=== PATIENT | female | born 1985 | race African-American/Black ===

== ENCOUNTER 2022-01-23 22:08 | Emergency (ER) | payer SELFPAY | END 2022-01-23 23:21 | disposition home or self-care (01) | LOC: CSHERS 22:08 | DX: J01.90 Acute sinusitis, unspecified (principal); E78.5 Hyperlipidemia, unspecified; I10 Essential (primary) hypertension; E11.9 Type 2 diabetes mellitus without complications; F17.290 Nicotine dependence, other tobacco product, uncomplicated; Z79.899 Other long term (current) drug therapy | CPT/HCPCS: 99283 ==

== ENCOUNTER 2022-12-09 17:34 | Emergency (ER) | payer SELFPAY ==
[2022-12-09] MEDS ORDERED: Acetaminophen 500 MG TAB ONE (19:07)
[2022-12-09] MEDS ORDERED: Ketorolac Tromethamine 30 MG/ML VIAL ONE (19:09)
[2022-12-09 19:31] LABS: SARS-CoV-2 NAA Rapid Test Not Detected (NotDetected)
== END 2022-12-09 20:24 | disposition home or self-care (01) ==
LOC: CSHERS 17:34
DX: B34.9 Viral infection, unspecified (principal); Z20.822 Contact with and (suspected) exposure to COVID-19; E78.5 Hyperlipidemia, unspecified; I10 Essential (primary) hypertension; Z79.899 Other long term (current) drug therapy; E11.9 Type 2 diabetes mellitus without complications; Z87.891 Personal history of nicotine dependence; Z79.84 Long term (current) use of oral hypoglycemic drugs
CPT/HCPCS: 96372; 99284; J1885

== ENCOUNTER 2023-01-23 18:38 | Emergency (ER) | payer OTHER, SELFPAY ==
[~2023-01-23 18:38] MED LIST: Iopamidol 370 76% 100 ML VIAL ONE
[2023-01-23 19:07] LABS: #Basophils 0.1 10x3/uL (0.0-0.2); #Eosinphils 0.3 10x3/uL (0.0-0.5); #Monocytes 0.6 10x3/uL (0.0-1.1); #Neutrophils 4.4 10x3/uL (1.5-8.4); %Basophils 0.6 % (0.0-2.0); %Eosinophils 2.5 % (0.0-6.0); %Lymphocytes 46.3 % (18.0-47.0); %Monocytes 6.3 % (0.0-10.0); Hemoglobin 12.5 g/dL (12.0-15.5); Mean Corpuscular HGB CONC 33.2 g/dL (32.0-36.0); Mean Corpuscular Hemoglobin 29.5 pg (27.0-33.0); Mean Corpuscular Volume 88.9 fl (81.6-98.3); Mean Platelet Volume 10.6 fl (7.4-10.4); Platelet Count 326 10x3/uL (150-450); RBC Distribution Width 13.2 % (11.5-14.5); Red Blood Cell (RBC) Count 4.24 10x6/uL (3.90-5.03); White Blood Cell (WBC) Count 10.1 10x3/uL (3.5-10.5)
[2023-01-23 19:19] LABS: PTT 26.3 sec (22.0-33.0); Prothrombin Time 10.5 sec (9.5-12.1)
[2023-01-23 19:22] LABS: ALT (SGPT) 15 U/L (8-55); AST (SGOT) 14 U/L (5-34); Albumin 4.2 g/dL (3.5-5.0); Alkaline Phosphatase 83 U/L (40-110); Anion Gap 16 mmol/L (10-20); BUN (Urea Nitrogen) 15 mg/dL (7.0-18.7); Bilirubin, Total 0.2 mg/dL (0.2-1.2); Calc. Creatinine Clearance 0 mL/min (70-130); Calcium 9.6 mg/dL (7.8-10.44); Carbon Dioxide 24 mmol/L (22-29); Chloride 102 mmol/L (98-107); Estimated GFR 89; Globulin 3.8 g/dL (2.4-3.5); Glucose 331 mg/dL (70-105); Potassium 3.7 mmol/L (3.5-5.1); Sodium 138 mmol/L (136-145)
[2023-01-23] MEDS ORDERED: Ondansetron PF 4 MG/2 ML Vial ONE (20:02)
[2023-01-23] MEDS ORDERED: Morphine 4 MG/ML VIAL ONE ×2 (20:02→23:06)
== END 2023-01-23 23:13 | disposition short-term general hospital (02) ==
LOC: MERGE 18:38 → CSHERS 18:38
DX: I77.71 Dissection of carotid artery (principal); I10 Essential (primary) hypertension; E11.9 Type 2 diabetes mellitus without complications
CPT/HCPCS: 0042T; 36416; 70450; 80053; 82550; 84484; 85025; 85610; 85730; 93005; 96374; 96375; 96376; J2270; J2405; Q9967

== ENCOUNTER 2023-06-17 23:57 | Emergency (ER) | payer BC, SELFPAY ==
[2023-06-18] MEDS ORDERED: diphenhydrAMINE 50 MG/ML VIAL ONE (01:17)
[2023-06-18] MEDS ORDERED: Ketorolac Tromethamine 30 MG/ML VIAL ONE (01:17)
[2023-06-18] MEDS ORDERED: Prochlorperazine 10 MG/2 ML VIAL ONE (01:17)
[2023-06-18 01:38] LABS: #Basophils 0.1 10x3/uL (0.0-0.2); #Eosinphils 0.3 10x3/uL (0.0-0.5); #Monocytes 0.7 10x3/uL (0.0-1.1); #Neutrophils 4.8 10x3/uL (1.5-8.4); %Basophils 0.6 % (0.0-2.0); %Eosinophils 2.5 % (0.0-6.0); %Lymphocytes 41.9 % (18.0-47.0); %Monocytes 6.5 % (0.0-10.0); Hematocrit 38.2 % (34.9-44.5); Hemoglobin 12.7 g/dL (12.0-15.5); Mean Corpuscular HGB CONC 33.2 g/dL (32.0-36.0); Mean Corpuscular Hemoglobin 29.4 pg (27.0-33.0); Mean Corpuscular Volume 88.4 fl (81.6-98.3); Mean Platelet Volume 10.8 fl (7.4-10.4); Platelet Count 289 10x3/uL (150-450); RBC Distribution Width 13.8 % (11.5-14.5); Red Blood Cell (RBC) Count 4.32 10x6/uL (3.90-5.03); White Blood Cell (WBC) Count 9.9 10x3/uL (3.5-10.5)
[2023-06-18 01:45] LABS: ALT (SGPT) 21 U/L (8-55); AST (SGOT) 15 U/L (5-34); Albumin 4.1 g/dL (3.5-5.0); Alkaline Phosphatase 98 U/L (40-110); Anion Gap 14 mmol/L (10-20); BUN (Urea Nitrogen) 13 mg/dL (7.0-18.7); Bilirubin, Total 0.2 mg/dL (0.2-1.2); Calc. Creatinine Clearance 0 mL/min (70-130); Calcium 9.5 mg/dL (7.8-10.44); Carbon Dioxide 25 mmol/L (22-29); Chloride 103 mmol/L (98-107); Estimated GFR 79; Globulin 3.2 g/dL (2.4-3.5); Glucose 376 mg/dL (70-105); Potassium 3.6 mmol/L (3.5-5.1); Protein, Total 7.3 g/dL (6.0-8.3); Sodium 138 mmol/L (136-145)
[2023-06-18 01:51] LABS: Troponin I 0.013 ng/mL (< 0.028)
[2023-06-18] MEDS ORDERED: Morphine 4 MG/ML VIAL ONE (02:18)
== END 2023-06-18 04:15 | disposition home or self-care (01) ==
LOC: CSHERS 23:57
DX: M54.2 Cervicalgia (principal); R51.9 Headache, unspecified; I10 Essential (primary) hypertension; E78.5 Hyperlipidemia, unspecified; F17.210 Nicotine dependence, cigarettes, uncomplicated; E11.9 Type 2 diabetes mellitus without complications; Z79.899 Other long term (current) drug therapy; Z79.82 Long term (current) use of aspirin; Z79.02 Long term (current) use of antithrombotics/antiplatelets; J45.909 Unspecified asthma, uncomplicated
CPT/HCPCS: 80053; 84484; 85025; 93005; 93010; 96374; 96375; J0780; J1200; J1885; J2270

== ENCOUNTER 2023-09-10 11:33 | Emergency (ER) | payer SELFPAY ==
[2023-09-10] MEDS ORDERED: Ipratropium/Albuterol 3 ML NEB ONE ×3 (12:06→16:52)
[2023-09-10] MEDS ORDERED: Albuterol 2.5 MG (0.5 mL) NEB ONE (12:06)
[2023-09-10] MEDS ORDERED: Dexamethasone 10 MG/ML VIAL ONE (12:06)
[2023-09-10 12:10] LABS: #Basophils 0.1 10x3/uL (0.0-0.2); #Eosinphils 0.2 10x3/uL (0.0-0.5); #Monocytes 0.9 10x3/uL (0.0-1.1); #Neutrophils 6.6 10x3/uL (1.5-8.4); %Basophils 0.6 % (0.0-2.0); %Eosinophils 1.7 % (0.0-6.0); %Lymphocytes 36.1 % (18.0-47.0); %Monocytes 7.5 % (0.0-10.0); %Neutrophils 53.9 % (40.0-75.0); Hematocrit 40.1 % (34.9-44.5); Hemoglobin 13.4 g/dL (12.0-15.5); Mean Corpuscular HGB CONC 33.4 g/dL (32.0-36.0); Mean Corpuscular Hemoglobin 29.8 pg (27.0-33.0); Mean Corpuscular Volume 89.1 fl (81.6-98.3); Platelet Count 271 10x3/uL (150-450); RBC Distribution Width 12.5 % (11.5-14.5); White Blood Cell (WBC) Count 12.3 10x3/uL (3.5-10.5)
[2023-09-10 12:24] LABS: ALT (SGPT) 25 U/L (8-55); AST (SGOT) 17 U/L (5-34); Albumin 4.2 g/dL (3.5-5.0); Alkaline Phosphatase 80 U/L (40-110); Anion Gap 15 mmol/L (10-20); BUN (Urea Nitrogen) 8 mg/dL (7.0-18.7); Bilirubin, Total 0.4 mg/dL (0.2-1.2); Calc. Creatinine Clearance 0 mL/min (70-130); Calcium 9.4 mg/dL (7.8-10.44); Carbon Dioxide 23 mmol/L (22-29); Chloride 102 mmol/L (98-107); Estimated GFR 98; Globulin 3.4 g/dL (2.4-3.5); Glucose 184 mg/dL (70-105); Magnesium 1.7 mg/dL (1.6-2.6); Potassium 4.2 mmol/L (3.5-5.1); Protein, Total 7.6 g/dL (6.0-8.3); Sodium 136 mmol/L (136-145)
[2023-09-10 12:29] LABS: Troponin I Less than 0.010 ng/mL (< 0.028)
[2023-09-10] MEDS ORDERED: Ketorolac Tromethamine 30 MG/ML VIAL ONE (13:06)
[2023-09-10] MEDS ORDERED: diphenhydrAMINE 50 MG/ML VIAL ONE (13:06)
[2023-09-10 13:07] LABS: SARS-CoV-2 NAA Rapid Test Not Detected (NotDetected)
== END 2023-09-10 17:43 | disposition home or self-care (01) ==
LOC: CSHERS 11:33
DX: J45.901 Unspecified asthma with (acute) exacerbation (principal); E78.5 Hyperlipidemia, unspecified; I10 Essential (primary) hypertension; E11.9 Type 2 diabetes mellitus without complications; F17.210 Nicotine dependence, cigarettes, uncomplicated
CPT/HCPCS: 36416; 71045; 80053; 83735; 83880; 84484; 85025; 85379; 93005; 96374; 96375; J1100; J1200; J1885; J7611; J7620

== ENCOUNTER 2023-11-08 22:59 | Observation (INO) | payer OTHER, SELFPAY ==
[2023-11-08] MEDS ORDERED: Nitroglycerin 2% Ointment 1 INCH/1 GM Packet ONE (23:25)
[2023-11-08] MEDS ORDERED: Aspirin Chewable 81 MG TAB ONE (23:25)
[2023-11-08 23:56] LABS: ALT (SGPT) 22 U/L (8-55); AST (SGOT) 15 U/L (5-34); Albumin 4.3 g/dL (3.5-5.0); Alkaline Phosphatase 118 U/L (40-110); Anion Gap 16 mmol/L (10-20); BUN (Urea Nitrogen) 12 mg/dL (7.0-18.7); Bilirubin, Total 0.2 mg/dL (0.2-1.2); Calc. Creatinine Clearance 0 mL/min (70-130); Calcium 9.2 mg/dL (7.8-10.44); Carbon Dioxide 20 mmol/L (22-29); Chloride 103 mmol/L (98-107); Estimated GFR 94; Globulin 3.6 g/dL (2.4-3.5); Glucose 321 mg/dL (70-105); Potassium 4.3 mmol/L (3.5-5.1); Protein, Total 7.9 g/dL (6.0-8.3); Sodium 135 mmol/L (136-145)
[2023-11-08 23:57] LABS: BHCG - Serum Negative (NEGATIVE); Pregs Control Background? CLEAR/WHITE (CLR/WHITE); Pregs Control Bar Appear? YES (CONTROL BAR)
[2023-11-08 23:57] LABS: #Basophils 0.1 10x3/uL (0.0-0.2); #Eosinphils 0.2 10x3/uL (0.0-0.5); #Monocytes 0.5 10x3/uL (0.0-1.1); #Neutrophils 3.1 10x3/uL (1.5-8.4); %Basophils 0.7 % (0.0-2.0); %Eosinophils 2.5 % (0.0-6.0); %Lymphocytes 52.9 % (18.0-47.0); %Monocytes 6.4 % (0.0-10.0); %Neutrophils 37.4 % (40.0-75.0); Hematocrit 37.4 % (34.9-44.5); Hemoglobin 12.9 g/dL (12.0-15.5); Mean Corpuscular HGB CONC 34.5 g/dL (32.0-36.0); Mean Platelet Volume 10.4 fl (7.4-10.4); Platelet Count 253 10x3/uL (150-450); RBC Distribution Width 12.3 % (11.5-14.5); White Blood Cell (WBC) Count 8.2 10x3/uL (3.5-10.5)
[2023-11-08 23:59] LABS: Troponin I Less than 0.010 ng/mL (< 0.028)
[2023-11-08] MEDS ORDERED: Metoprolol Tartrate 5 MG (5 mL) VIAL ONE (23:59)
[2023-11-09] MEDS ORDERED: Acetaminophen 500 MG TAB ONE
[2023-11-09] MEDS ORDERED: fentaNYL 50 mcg/mL 1 mL Vial ONE (00:12)
[2023-11-09] MEDS ORDERED: Metoprolol Tartrate 5 MG (5 mL) VIAL ONE ×2 (00:20→00:34)
[2023-11-09] MEDS ORDERED: Nitroglycerin 0.4 MG TAB (25 Tab Bottle) SL PRN (01:25)
[2023-11-09] MEDS ORDERED: HumaLOG 300 UNITS/3 ML VIAL SC PRN (01:31)
[2023-11-09] MEDS ORDERED: Dextrose 50% Abboject 50 ML SYRINGE SLOW IVP PRN (01:31)
[2023-11-09] MEDS ORDERED: Glucagon 1 MG/ML KIT IM PRN (01:31)
[2023-11-09] MEDS ORDERED: Dextrose 5% in Water 1,000 ML IV PRN (01:31)
[2023-11-09] MEDS ORDERED: Enoxaparin 80 MG (0.8 mL) SYRINGE ONE (01:47)
[2023-11-09] MEDS ORDERED: Morphine 4 MG/ML VIAL ONE (01:47)
[2023-11-09 01:50] LABS: Magnesium 1.8 mg/dL (1.6-2.6)
[2023-11-09] MEDS: Morphine 4 MG/ML VIAL SLOW IVP SCH (02:00)
[2023-11-09] MEDS: Enoxaparin 80 MG (0.8 mL) SYRINGE SC SCH (02:00)
[2023-11-09 02:41] LABS: PTT 29.5 sec (22.0-33.0); Prothrombin Time 10.3 sec (9.5-12.1)
[2023-11-09 02:55] VITALS: TEMP 97.6
[2023-11-09 03:51] LABS: Troponin I Less than 0.010 ng/mL (< 0.028)
[2023-11-09] MEDS: Nitroglycerin 2% Ointment 1 INCH/1 GM Packet TOP SCH (05:55)
[2023-11-09] MEDS ORDERED: Morphine 2 MG/ML VIAL ONE (06:09)
[2023-11-09 06:25] LABS: Troponin I Less than 0.010 ng/mL (< 0.028)
[2023-11-09] MEDS: Morphine 2 MG/ML VIAL SLOW IVP SCH (06:30)
[2023-11-09 07:28] VITALS: BP 146/86
[2023-11-09] MEDS ORDERED: Aspirin Chewable 81 MG TAB ONE (07:31)
[2023-11-09] MEDS ORDERED: Clopidogrel Bisulfate 75 MG TAB ONE (07:31)
[2023-11-09] MEDS: Clopidogrel Bisulfate 75 MG TAB PO SCH (08:18)
[2023-11-09] MEDS: Aspirin Chewable 81 MG TAB PO SCH (08:18)
[2023-11-09] MEDS: Empagliflozin 10 MG TAB PO SCH (08:19)
[2023-11-09] MEDS: Lisinopril 20 MG TAB PO SCH (08:19)
[2023-11-09] MEDS ORDERED: Atorvastatin Calcium 40 MG TAB PO SCH (21:00)
== END 2023-11-09 14:54 | disposition left against medical advice (07) ==
LOC: CSHERS 22:59 → CSHERHOLD 11-09 00:34
PROVIDERS: ADMIT Family Medicine; ATTEND Nurse Practitioner Family
PROC: B246ZZZ Ultrasonography of Right and Left Heart (ICD-10-PCS; principal; 2023-11-09)
DX: R07.2 Precordial pain (principal); E11.9 Type 2 diabetes mellitus without complications; J45.909 Unspecified asthma, uncomplicated; I65.22 Occlusion and stenosis of left carotid artery; I10 Essential (primary) hypertension; I16.0 Hypertensive urgency; E78.5 Hyperlipidemia, unspecified; Z90.49 Acquired absence of other specified parts of digestive tract; Z98.51 Tubal ligation status; F17.210 Nicotine dependence, cigarettes, uncomplicated; Z88.5 Allergy status to narcotic agent; Z79.82 Long term (current) use of aspirin; Z79.899 Other long term (current) drug therapy; Z90.89 Acquired absence of other organs; Z98.890 Other specified postprocedural states; Z79.02 Long term (current) use of antithrombotics/antiplatelets
CPT/HCPCS: 36415; 36416; 71045; 80053; 80061; 83735; 84484; 84703; 85025; 85610; 85730; 93005; 93010; 93306; 96372; 96374; 96375; 96376; G0378; J1650; J2270; J2272; J3010

== ENCOUNTER 2023-11-17 11:12 | Emergency (ER) | payer OTHER, SELFPAY ==
[2023-11-17] MEDS ORDERED: diphenhydrAMINE 25 MG CAP ONE (11:33)
[2023-11-17] MEDS ORDERED: predniSONE 20 MG TAB ONE (11:33)
[2023-11-17] MEDS ORDERED: Famotidine 20 MG TAB ONE (11:34)
== END 2023-11-17 13:06 | disposition home or self-care (01) ==
LOC: CSHERS 11:12
DX: T78.3XXA Angioneurotic edema, initial encounter (principal); I10 Essential (primary) hypertension; E11.9 Type 2 diabetes mellitus without complications
CPT/HCPCS: 99283; J7512

== ENCOUNTER 2024-01-27 17:43 | Emergency (ER) | payer OTHER ==
[2024-01-27 18:53] LABS: #Basophils 0.06 10x3/uL (0.0-0.2); #Eosinphils 0.19 10x3/uL (0.0-0.5); #Monocytes 0.48 10x3/uL (0.0-1.1); #Neutrophils 4.29 10x3/uL (1.5-8.4); %Basophils 0.7 % (0.0-2.0); %Eosinophils 2.1 % (0.0-6.0); %Lymphocytes 44.7 % (18.0-47.0); %Monocytes 5.3 % (0.0-10.0); %Neutrophils 46.9 % (40.0-75.0); Hematocrit 40.7 % (34.9-44.5); Hemoglobin 13.5 g/dL (12.0-15.5); Mean Corpuscular HGB CONC 33.2 g/dL (32.0-36.0); Mean Corpuscular Hemoglobin 29.9 pg (27.0-33.0); Mean Corpuscular Volume 90.2 fl (81.6-98.3); Mean Platelet Volume 9.8 fl (7.4-10.4); Platelet Count 335 10x3/uL (150-450); RBC Distribution Width 13.1 % (11.5-14.5); Red Blood Cell (RBC) Count 4.51 10x6/uL (3.90-5.03); White Blood Cell (WBC) Count 9.1 10x3/uL (3.5-10.5)
[2024-01-27 19:11] LABS: ALT (SGPT) 18 U/L (8-55); AST (SGOT) 15 U/L (5-34); Albumin 3.7 g/dL (3.5-5.0); Alkaline Phosphatase 94 U/L (40-110); Anion Gap 11 mmol/L (10-20); BUN (Urea Nitrogen) 8 mg/dL (7.0-18.7); Bilirubin, Total 0.2 mg/dL (0.2-1.2); Calc. Creatinine Clearance 0 mL/min (70-130); Calcium 9.4 mg/dL (7.8-10.44); Carbon Dioxide 25 mmol/L (22-29); Chloride 104 mmol/L (98-107); Estimated GFR 97; Glucose 182 mg/dL (70-105); Potassium 4.1 mmol/L (3.5-5.1); Protein, Total 7.7 g/dL (6.0-8.3); Sodium 136 mmol/L (136-145)
[2024-01-27] MEDS ORDERED: Ketorolac Tromethamine 30 MG (1 mL) VIAL ONE (19:42)
[2024-01-27 19:45] LABS: Bilirubin Neg (Negative); Blood, Urine Negative (Negative); Clarity Clear (Clear); Glucose, Urine (Dipstick) 100 mg/dL (Negative); Ketone, Urine Negative (Negative); Leukocyte Negative (Negative); Nitrite Negative (Negative); Protein, Urine (Dipstick) 15 mg/dl (Neg-Trace); Urobilinogen Normal mg/dL (Less than 2)
[2024-01-27 19:48] LABS: Pregnancy Test - Urine (BHCG) Negative (Negative); Pregu Control Background? CLEAR/WHITE (CLR/WHITE); Pregu Control Bar Appear? YES (CONTROL BAR)
[2024-01-27 20:33] LABS: CAUTI Indications for Culture Pelvic or flank pain; RBC/HPF 0-3 HPF (0-3); WBC/HPF 0-3 HPF (0-3)
[2024-01-27 20:34] LABS: Bacteria/HPF 2+ HPF (None Seen); Urine Culture Reflex No No
== END 2024-01-27 20:32 | disposition home or self-care (01) ==
LOC: CSHERS 17:43
DX: N83.202 Unspecified ovarian cyst, left side (principal); Z55.6 Problems related to health literacy; E11.9 Type 2 diabetes mellitus without complications; I10 Essential (primary) hypertension
CPT/HCPCS: 36415; 80053; 81001; 81025; 85025; 96374; J1885

== ENCOUNTER 2024-06-29 14:26 | Observation (INO) | payer OTHER ==
[2024-06-29 15:03] LABS: #Basophils 0.03 10x3/uL (0.0-0.2); #Eosinophils 0.19 10x3/uL (0.0-0.5); #Monocytes 0.62 10x3/uL (0.0-1.1); #Neutrophils 5.14 10x3/uL (1.5-8.4); %Basophils 0.3 % (0.0-2.0); %Eosinophils 1.8 % (0.0-6.0); %Lymphocytes 43.2 % (18.0-47.0); %Monocytes 5.9 % (0.0-10.0); %Neutrophils 48.7 % (40.0-75.0); Hematocrit 38.6 % (34.9-44.5); Hemoglobin 12.5 g/dL (12.0-15.5); Mean Corpuscular HGB CONC 32.4 g/dL (32.0-36.0); Mean Corpuscular Hemoglobin 29.3 pg (27.0-33.0); Mean Corpuscular Volume 90.4 fL (81.6-98.3); Mean Platelet Volume 10.2 fL (7.4-10.4); Platelet Count 260 10x3/uL (150-450); Red Blood Cell (RBC) Count 4.27 10x6/uL (3.90-5.03); White Blood Cell (WBC) Count 10.5 10x3/uL (3.5-10.5)
[2024-06-29 15:16] LABS: PTT 25.7 sec (22.0-33.0); Prothrombin Time 10.4 sec (9.5-12.1)
[2024-06-29 15:18] LABS: ALT (SGPT) 20 U/L (8-55); AST (SGOT) 15 U/L (5-34); Albumin 3.8 g/dL (3.5-5.0); Alkaline Phosphatase 98 U/L (40-110); Anion Gap 15 mmol/L (10-20); BUN (Urea Nitrogen) 14 mg/dL (7.0-18.7); Bilirubin, Total 0.2 mg/dL (0.2-1.2); CK (CPK) 71 U/L (29-168); Calc. Creatinine Clearance 0 mL/min (70-130); Calcium 9.6 mg/dL (7.8-10.44); Carbon Dioxide 21 mmol/L (22-29); Chloride 103 mmol/L (98-107); Estimated GFR 95; Globulin 3.6 g/dL (2.4-3.5); Glucose 232 mg/dL (70-105); Potassium 4.5 mmol/L (3.5-5.1); Protein, Total 7.4 g/dL (6.0-8.3); Sodium 134 mmol/L (136-145)
[2024-06-29 15:20] LABS: Troponin I Less than 0.010 ng/mL (< 0.028)
[2024-06-29] MEDS ORDERED: niCARdipine 25 MG/10 ML SDV ONE ×2 (15:35→15:39)
[2024-06-29] MEDS ORDERED: Ondansetron ODT 4 MG TAB PO PRN (17:32)
[2024-06-29] MEDS ORDERED: Ondansetron PF 4 MG/2 ML Vial IVP PRN (17:32)
[2024-06-29] MEDS ORDERED: Calcium Carbonate 500 MG ChewTAB PO PRN (17:32)
[2024-06-29] MEDS ORDERED: hydrALAZINE 20 MG/ML VIAL SLOW IVP PRN (17:34)
[2024-06-29] MEDS ORDERED: Insulin Regular, Human 100 UNIT/ML 10 ML VIAL SC PRN (17:35)
[2024-06-29] MEDS ORDERED: Glucagon 1 MG/ML KIT IM PRN (17:35)
[2024-06-29] MEDS ORDERED: Dextrose 5% in Water 1,000 ML IV PRN (17:35)
[2024-06-29] MEDS ORDERED: Dextrose 50% Abboject 50 ML SYRINGE SLOW IVP PRN (17:35)
[2024-06-29] MEDS ORDERED: Ipratropium/Albuterol 3 ML NEB NEB PRN (17:44)
[2024-06-29 19:43] VITALS: BMI 29.1
[2024-06-29] MEDS: Famotidine 20 MG TAB PO SCH (20:41)
[2024-06-29] MEDS: Atorvastatin Calcium 40 MG TAB PO SCH (20:41)
[2024-06-29] MEDS: Heparin 5,000 UNITS/ML VIAL SC SCH (20:42)
[2024-06-29] MEDS: Acetaminophen/Codeine 30-300mg Tablet PO PRN (21:10)
[2024-06-30] MEDS: Acetaminophen 325 MG TAB PO PRN (02:13)
[2024-06-30 04:02] LABS: #Basophils 0.06 10x3/uL (0.0-0.2); #Eosinophils 0.24 10x3/uL (0.0-0.5); #Monocytes 0.67 10x3/uL (0.0-1.1); #Neutrophils 3.29 10x3/uL (1.5-8.4); %Basophils 0.7 % (0.0-2.0); %Eosinophils 2.7 % (0.0-6.0); %Lymphocytes 51.3 % (18.0-47.0); %Monocytes 7.6 % (0.0-10.0); %Neutrophils 37.4 % (40.0-75.0); Hematocrit 35.6 % (34.9-44.5); Hemoglobin 11.6 g/dL (12.0-15.5); Mean Corpuscular HGB CONC 32.6 g/dL (32.0-36.0); Mean Corpuscular Hemoglobin 29.7 pg (27.0-33.0); Mean Corpuscular Volume 91.3 fL (81.6-98.3); Mean Platelet Volume 10.7 fL (7.4-10.4); Platelet Count 253 10x3/uL (150-450); RBC Distribution Width 13.1 % (11.5-14.5); White Blood Cell (WBC) Count 8.8 10x3/uL (3.5-10.5)
[2024-06-30 04:11] LABS: Anion Gap 15 mmol/L (10-20); BUN (Urea Nitrogen) 10 mg/dL (7.0-18.7); Calc. Creatinine Clearance 110 mL/min (70-130); Calcium 9.2 mg/dL (7.8-10.44); Carbon Dioxide 21 mmol/L (22-29); Chloride 101 mmol/L (98-107); Estimated GFR 86; Magnesium 1.8 mg/dL (1.6-2.6); Potassium 4.2 mmol/L (3.5-5.1); Sodium 133 mmol/L (136-145)
[2024-06-30 04:23] LABS: Glucose 456 mg/dL (70-105)
[2024-06-30 04:32] LABS: Cardiac Risk 5.4 (Less than 4.5); Cholesterol 207 mg/dl (< 200 Desired); HDL Cholesterol 38 mg/dL (>60 Neg Risk)
[2024-06-30] MEDS: Insulin Regular, Human 100 UNIT/ML 10 ML VIAL SC PRN (04:55)
[2024-06-30 06:35] LABS: Triglycerides 671 mg/dL (Less than 150)
[2024-06-30 06:36] LABS: Critical Call Chemistry NUR.JP14 @0423 WITH
[2024-06-30] MEDS: Clopidogrel Bisulfate 75 MG TAB PO SCH (09:47)
[2024-06-30] MEDS: Aspirin 81 mg Enteric Coated Tablet PO SCH (09:48)
[2024-06-30] MEDS: FLU (Fluarix Triv) TS24-25(6MOS UP)/PF 45 MCG/0.5 ML Syringe IM ONE (09:54)
[2024-06-30] MEDS ORDERED: traMADol HCl 50 MG TAB PO SCH (10:15)
[2024-06-30] MEDS: SUMAtriptan Succinate 25 MG TAB PO SCH (10:45)
[2024-06-30] MEDS: Verapamil 120 MG SR.TAB PO SCH (11:17)
[2024-06-30] MEDS ORDERED: methylPREDNISolone Sod Succ/PF 125 MG/2 ML VIAL IVP SCH (13:00)
[2024-06-30 13:11] LABS: Hemoglobin A1c 9.2 % (4.0-6.0)
[2024-06-30] MEDS: Dexamethasone 4 mg/ml Vial SLOW IVP SCH (13:18)
[2024-06-30] MEDS: Acetaminophen 500 MG TAB PO SCH (13:18)
[2024-06-30] MEDS: Topiramate 25 MG TAB PO SCH (13:18)
[2024-06-30 20:53] LABS: Glucose 579 mg/dL (70-105)
[2024-06-30] MEDS: Insulin Lispro 100 UNIT/ML 10 ML VIAL SC PRN (21:31)
[2024-07-01] MEDS: metFORMIN 500 MG TAB PO SCH ×2 (08:16→09:29)
[2024-07-01] MEDS ORDERED: Verapamil 120 MG SR.TAB PO SCH (09:00)
[2024-07-01] MEDS: Amlodipine 10 MG TAB PO SCH (09:49)
[2024-07-01] MEDS: Losartan 25 MG TAB PO SCH (09:49)
[2024-07-01 12:14] VITALS: BP 123/77; TEMP 98.3
[2024-07-01] MEDS ORDERED: Atorvastatin Calcium 40 MG TAB PO SCH (21:00)
== END 2024-07-01 13:37 | disposition home or self-care (01) ==
LOC: CSHERS 14:26 → CSHTELE 17:23
PROVIDERS: ADMIT Internal Medicine; ATTEND Internal Medicine
DX: I65.22 Occlusion and stenosis of left carotid artery (principal); I10 Essential (primary) hypertension; E11.65 Type 2 diabetes mellitus with hyperglycemia; J45.909 Unspecified asthma, uncomplicated; E78.5 Hyperlipidemia, unspecified; F17.200 Nicotine dependence, unspecified, uncomplicated; Z79.4 Long term (current) use of insulin; Z79.899 Other long term (current) drug therapy; Z88.5 Allergy status to narcotic agent
CPT/HCPCS: 0042T; 36415; 36416; 70450; 70551; 71045; 80048; 80053; 80061; 82550; 83036; 83735; 84484; 85025; 85610; 85730; 90656; 93005; 93010; 94760; 94762; 96372; 96374; 96375; G0378; J1100; J1644; J1815; Q9967

== ENCOUNTER 2024-09-28 09:06 | Emergency (ER) | payer OTHER ==
[2024-09-28] MEDS ORDERED: Acetaminophen 325 MG TAB ONE (09:33)
[2024-09-28] MEDS ORDERED: Ketorolac Tromethamine 30 MG (1 mL) VIAL ONE (09:58)
[2024-09-28 10:17] LABS: ALT (SGPT) 19 U/L (8-55); AST (SGOT) 13 U/L (5-34); Albumin 3.6 g/dL (3.5-5.0); Alkaline Phosphatase 81 U/L (40-110); Anion Gap 12 mmol/L (10-20); BUN (Urea Nitrogen) 8 mg/dL (7.0-18.7); Bilirubin, Total 0.4 mg/dL (0.2-1.2); Calc. Creatinine Clearance 0 mL/min (70-130); Carbon Dioxide 24 mmol/L (22-29); Chloride 105 mmol/L (98-107); Estimated GFR 104; Globulin 3.3 g/dL (2.4-3.5); Glucose 213 mg/dL (70-105); Protein, Total 6.9 g/dL (6.0-8.3); Sodium 137 mmol/L (136-145)
[2024-09-28 10:23] LABS: Troponin I Less than 0.010 ng/mL (< 0.028)
[2024-09-28 10:26] LABS: #Basophils 0.03 10x3/uL (0.0-0.2); #Eosinophils 0.17 10x3/uL (0.0-0.5); #Monocytes 0.83 10x3/uL (0.0-1.1); #Neutrophils 6.21 10x3/uL (1.5-8.4); %Basophils 0.3 % (0.0-2.0); %Eosinophils 1.6 % (0.0-6.0); %Lymphocytes 33.4 % (18.0-47.0); %Monocytes 7.6 % (0.0-10.0); %Neutrophils 56.8 % (40.0-75.0); Hematocrit 37.9 % (34.9-44.5); Hemoglobin 12.3 g/dL (12.0-15.5); Mean Corpuscular HGB CONC 32.5 g/dL (32.0-36.0); Mean Corpuscular Hemoglobin 28.9 pg (27.0-33.0); Mean Platelet Volume 10.1 fL (7.4-10.4); Platelet Count 242 10x3/uL (150-450); RBC Distribution Width 12.4 % (11.5-14.5); Red Blood Cell (RBC) Count 4.26 10x6/uL (3.90-5.03); White Blood Cell (WBC) Count 10.92 10x3/uL (3.5-10.5)
== END 2024-09-28 10:37 | disposition home or self-care (01) ==
LOC: CSHERS 09:06
DX: R07.9 Chest pain, unspecified (principal); I10 Essential (primary) hypertension; E11.9 Type 2 diabetes mellitus without complications; F17.210 Nicotine dependence, cigarettes, uncomplicated; J45.909 Unspecified asthma, uncomplicated; X58.XXXA Exposure to other specified factors, initial encounter; Y92.69 Other specified industrial and construction area as the place of occurrence of the external cause; Z55.0 Illiteracy and low-level literacy; Z55.6 Problems related to health literacy
CPT/HCPCS: 36415; 71045; 80053; 83880; 84484; 84703; 85025; 85379; 93005; 94760; 96372; 99285; J1885

== ENCOUNTER 2024-10-27 22:19 | Emergency (ER) | payer OTHER ==
[2024-10-27] MEDS ORDERED: predniSONE 20 MG TAB ONE (22:28)
[2024-10-27] MEDS ORDERED: Ketorolac Tromethamine 30 MG (1 mL) VIAL ONE (22:28)
[2024-10-27] MEDS ORDERED: Ipratropium/Albuterol 3 ML NEB ONE (22:42)
[2024-10-27] MEDS ORDERED: Aspirin 325 MG TAB ONE (23:02)
[2024-10-27] MEDS ORDERED: Nitroglycerin 0.4 MG TAB 1 EACH ONE (23:03)
[2024-10-27] MEDS ORDERED: Aspirin Chewable 81 MG TAB ONE (23:05)
[2024-10-27 23:22] LABS: #Basophils 0.05 10x3/uL (0.0-0.2); #Monocytes 0.49 10x3/uL (0.0-1.1); #Neutrophils 3.93 10x3/uL (1.5-8.4); %Basophils 0.5 % (0.0-2.0); %Monocytes 4.9 % (0.0-10.0); %Neutrophils 39.3 % (40.0-75.0); Hematocrit 34.7 % (34.9-44.5); Hemoglobin 12.9 g/dL (12.0-15.5); Mean Corpuscular HGB CONC 37.2 g/dL (32.0-36.0); Mean Corpuscular Hemoglobin 32.7 pg (27.0-33.0); Mean Corpuscular Volume 88.1 fL (81.6-98.3); Mean Platelet Volume 10.4 fL (7.4-10.4); Platelet Count 258 10x3/uL (150-450); RBC Distribution Width 12.5 % (11.5-14.5); Red Blood Cell (RBC) Count 3.94 10x6/uL (3.90-5.03); White Blood Cell (WBC) Count 9.99 10x3/uL (3.5-10.5)
[2024-10-27 23:45] LABS: ALT (SGPT) 24 U/L (Less than 34); Albumin 3.8 g/dL (3.1-4.5); Alkaline Phosphatase 137 U/L (40-110); Anion Gap 14 mmol/L (10-20); BUN (Urea Nitrogen) 11 mg/dL (7.0-18.7); Bilirubin, Total 0.2 mg/dL (0.3-1.2); Calc. Creatinine Clearance 0 mL/min (70-130); Carbon Dioxide 22 mmol/L (22-29); Chloride 102 mmol/L (98-107); Estimated GFR 113; Globulin 5.2 g/dL (2.4-3.5); Glucose 383 mg/dL (70-105); Lipase 70 U/L (8-78); Magnesium 1.9 mg/dL (1.6-2.6); Potassium 4.2 mmol/L (3.5-5.1); Sodium 134 mmol/L (136-145)
[2024-10-27 23:50] LABS: Troponin I Less than 0.010 ng/mL (< 0.028)
[2024-10-28 00:20] LABS: AST (SGOT) 24 U/L (11-34)
[2024-10-28] MEDS ORDERED: HYDROcodone/Acetaminophen 5/325 mg Tablet ONE (01:43)
== END 2024-10-28 01:53 | disposition home or self-care (01) ==
LOC: CSHERS 22:19
DX: J45.909 Unspecified asthma, uncomplicated (principal); I10 Essential (primary) hypertension; E11.9 Type 2 diabetes mellitus without complications; F17.210 Nicotine dependence, cigarettes, uncomplicated
CPT/HCPCS: 71045; 80053; 83690; 83735; 84484; 85025; 87428; 93005; 94640; 94760; 96372; J1885; J7512; J7620

== ENCOUNTER 2025-04-26 18:57 | Emergency (ER) | payer SELFPAY ==
[2025-04-26] MEDS ORDERED: Acetaminophen 325 MG TAB ONE (19:41)
[2025-04-26 20:09] LABS: #Basophils 0.05 10x3/uL (0.0-0.2); #Eosinophils 0.29 10x3/uL (0.0-0.5); #Monocytes 0.63 10x3/uL (0.0-1.1); #Neutrophils 4.88 10x3/uL (1.5-8.4); %Basophils 0.5 % (0.0-2.0); %Eosinophils 2.8 % (0.0-6.0); %Lymphocytes 43.9 % (18.0-47.0); %Monocytes 6.0 % (0.0-10.0); %Neutrophils 46.5 % (40.0-75.0); Hematocrit 39.9 % (34.9-44.5); Hemoglobin 13.3 g/dL (12.0-15.5); Mean Corpuscular Hemoglobin 29.6 pg (27.0-33.0); Mean Corpuscular Volume 88.9 fL (81.6-98.3); Platelet Count 260 10x3/uL (150-450); Red Blood Cell (RBC) Count 4.49 10x6/uL (3.90-5.03); White Blood Cell (WBC) Count 10.49 10x3/uL (3.5-10.5)
[2025-04-26 20:11] LABS: Glucose, Urine (Dipstick) >=1000 mg/dL (Negative); Leukocyte Negative (Negative); Protein, Urine (Dipstick) Negative (Neg-Trace); Specific Gravity, Urine 1.015 (1.005-1.030)
[2025-04-26 20:15] LABS: Pregnancy Test - Urine (BHCG) Negative (Negative); Pregu Control Background? CLEAR/WHITE (CLR/WHITE); Pregu Control Bar Appear? YES (CONTROL BAR)
[2025-04-26 20:16] LABS: Anion Gap 13 mmol/L (10-20); BUN (Urea Nitrogen) 12 mg/dL (7.0-18.7); Calc. Creatinine Clearance 0 mL/min (70-130); Calcium 9.4 mg/dL (7.8-10.44); Carbon Dioxide 25 mmol/L (22-29); Chloride 104 mmol/L (98-107); Glucose 153 mg/dL (70-105); Potassium 3.5 mmol/L (3.5-5.1); Sodium 138 mmol/L (136-145)
[2025-04-26 20:23] LABS: Bacteria/HPF Rare-Few HPF (None Seen); CAUTI Indications for Culture Dysuria,urgency,freq; RBC/HPF 0-3 HPF (0-3); Urine Culture Reflex No No
== END 2025-04-26 22:24 | disposition home or self-care (01) ==
LOC: CSHERS 18:57
DX: R51.9 Headache, unspecified (principal); E11.9 Type 2 diabetes mellitus without complications; I10 Essential (primary) hypertension; F17.210 Nicotine dependence, cigarettes, uncomplicated; Z79.899 Other long term (current) drug therapy
CPT/HCPCS: 36416; 70450; 80048; 81001; 81025; 85025; 93005

== ENCOUNTER 2025-06-02 13:25 | Emergency (ER) | payer SELFPAY ==
[2025-06-02] MEDS ORDERED: Ibuprofen 200 MG TAB ONE (13:40)
== END 2025-06-02 15:29 | disposition home or self-care (01) ==
LOC: CSHERS 13:25
DX: S93.402A Sprain of unspecified ligament of left ankle, initial encounter (principal); E11.9 Type 2 diabetes mellitus without complications; I10 Essential (primary) hypertension; F17.210 Nicotine dependence, cigarettes, uncomplicated; X50.1XXA Overexertion from prolonged static or awkward postures, initial encounter
CPT/HCPCS: 99283

== ENCOUNTER 2025-06-29 01:38 | Emergency (ER) | payer OTHER ==
[2025-06-29] MEDS ORDERED: Ketorolac Tromethamine 30 MG (1 mL) VIAL ONE (02:21)
[2025-06-29] MEDS ORDERED: Acetaminophen 500 MG TAB ONE (02:21)
== END 2025-06-29 02:45 | disposition home or self-care (01) ==
LOC: CSHERS 01:38
DX: M25.572 Pain in left ankle and joints of left foot (principal); I10 Essential (primary) hypertension; E11.9 Type 2 diabetes mellitus without complications; F17.210 Nicotine dependence, cigarettes, uncomplicated; X50.1XXA Overexertion from prolonged static or awkward postures, initial encounter
CPT/HCPCS: 96372; 99283; J1885